=== PATIENT | female | born 1995 ===

== ENCOUNTER 2025-06-18 10:05 | Outpatient (AMB) | payer BC, MEDICAID, SELFPAY ==
[2025-06-18 10:20] VITALS: BP 123/82; PULSE 89; RESP 16; TEMP 36.6; O2SAT 96; BMI 44.6
--- NOTE | 2025-06-18 10:20 | GYNCLNT_ITS ---
Vital Signs 06/18/25 10:20 Height 1.57 m Height Method Stated Weight 110.79 kg Weight Measurement Method Standing Scale BMI 44.6 BP 123/82 Blood Pressure Source Automatic Cuff Blood Pressure Location Left Upper Arm Position Sitting Respiration 16 Pulse 89 Pulse Source Monitor Temp 97.9 F Temp Source Oral Pulse Oximetry (%) 96 Oxygen Delivery Method Room Air Allergies/Home Meds Allergies & Medications Allergies Penicillins Allergy (Severe, Verified 06/18/25 10:23) HIVES Medication Reconciliation medroxyprogesterone 10 mg tablet 10 mg PO QDAY 10 days #10 tabs 06/18/25 [Rx] Intake Visit Data Collection New Patient or Established: Established Patient (seen at [facility] within 3 years) Reason for Visit:: REFERRAL IRREGULAR MENSES Seen by Clinical Staff ONLY (RN/MA): No 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: No Do You Feel Safe at Home: Yes Authorities Contacted: N/A PCP or OBGYN visit in last 3 months: Yes Hx Now: No Are you currently on any form of Control: Yes Last menstrual period: 06/15/25 Pain Present Currently: Yes Pain Location: Abdomen Pain Scale Used: Mcpherson-Melgoza/Numerical Pain scale:: 4 Smoking Status Smoking Status: Never smoker Immunizations Flu Vaccine in the Last 12 Months: No Flu Vaccine Exclusion Criteria: 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 by Patient 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 Menstrual regularity: irregular Flow: heavy Monthly: No How many days does period last: 16 Age at menarche: 10 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 Past Medical History: No Hx Neurological Disorders, No Hx Hypothyroidism, No Hx Hyperthyroidism, No Hx Breast Cancer, No Hx Cardiac Disorders, No Hx Hypertension, No Hx Cancer, No Hx Blood Disorders, No Hx Anemia, No Hx Gastrointestinal Disorders, No Hx Renal Disease, No Hx Deep Vein Thrombosis, No Hx Diabetes Mellitus Type 1, No Hx Diabetes Mellitus Type 2, No Hx Tubal Ligation, No Hx Hysterectomy and No Psychiatric Problems Questionnaires Covid-19 Vaccine Questionnaire Has patient been vacinated for Covid-19 Have you been vacinated for Covid-19: Yes PHQ-9 PHQ-2 Over the last 2 weeks, how often have you been bothered by any of the following problems? 1. Little interest or pleasure in doing things: not at all 2. Feeling down, depressed, or hopeless: not at all Total score: 0 PHQ-9 3. Trouble falling or staying asleep, or sleeping too much: Not at all 4. Feeling tired or having little energy: Not at all 5. Poor appetite or overeating: Not at all 6. Feeling bad about yourself - or that you are a failure or have let yourself or your family down: Not at all 7. Trouble concentrating on things, such as reading the newspaper or watching television: Not at all 8. Moving or speaking so slowly that other people could have noticed? - Or the opposite - being so fidgety or restless that you have been moving around a lot more than usual: not at all 9. Thoughts that you would be better off or of hurting yourself in some way: Not at all Total score: 0 Source: Developed by Drs. Aaron Worthy, Maru Cruz, Manny Adair and colleagues, with an educational dixie from [employer]. Depression screen completed yes Social History Living Situation History Lives With: Family Housing: House Tobacco History Smoking Status: Never smoker Second Hand Smoke Exposure: No Alcohol History Alcohol Intake: Never Domestic Abuse History Do You Feel Safe at Home: Yes History of Present Illness HPI Narrative 29 years old with Prior 4 c sections referred from [facility] / patient had a Pap recently and she states was normal / she had a gastric sleeve, hiatal hernia repair/ liver biopsy and gall Bladder removal done by Dr Azevedo on 06/14/2025 . She was on Microgestin .12/07 for 2 months and it was stopped per patient for prophylaxis for preventing VT/VTE ? Patient has been having withdrawal bleed and soaks about 2 pads/ will call in Provera 10 mgm po q day x 10 days Will check with Dr Azevedo at [phone] to see if she can resume bCPills now . LMP 06/15/2025 / called Dr Azevedo's office and left message to speak to him to see if patient can resume BCPills now Review of Systems Review of Systems Systems Reviewed: All systems reviewed, normal except as documented Exam General General Appearance: alert, cooperative and well groomed Head Head exam: normal inspection Office Procedures [facility] LOC & Office Proc's Nursing/Assessment Patient Status: Established Patient OB Clinic Nursing Assessment: Medication Reconciliation, Update PMH in EMR and Vital Signs OB Clinic Coordination of Care: Complex Care and Chronic Disease 1-5, Consent,records obtained, informed consent, Education Simp Pt/Fam, 1 Ins Authorization, Lab and Imaging orders, Results/Orders obtained and Staff clarify orders Established Patient Charge Established Patient Point Assignment: 120 Established Patient Point Charge: EP Level 4 (120-155) Assessment & Plan Diagnosis / Problem List (1) Contraception management: Status: Acute Qualifiers: Contraceptive encounter type: other general counseling and advice Qualified Code(s): Z30.09 - Encounter for other general counseling and advice on contraception (2) Heavy period: Status: Acute Qualifiers: Menorrhagia type: with irregular cycle Qualified Code(s): N92.1 - Excessive and frequent menstruation with irregular cycle Plan Plan provera 10 mgm po q day x 10 days Additional Assessment 29 years old with Prior 4 c sections referred from [facility] / patient had a Pap recently and she states was normal / she had a gastric sleeve, hiatal hernia repair/ liver biopsy and gall Bladder removal done by Dr Azevedo on 06/14/2025 . She was on Microgestin 1.5/30 for 2 months and it was stopped per patient for prophylaxis for preventing VT/VTE ? Patient has been having withdrawal bleed and soaks about 2 pads/ will call in Provera 10 mgm po q day x 10 days Will check with Dr Azevedo at [phone] to see if she can resume bCPills now . LMP 06/15/2025 / called Dr Azevedo's office and left message to speak to him to see if patient can resume BCPills now
== END 2025-06-18 11:28 | disposition home or self-care (01) ==
PROVIDERS: Supervising Provider Obstetrics & Gynecology; Visit Provider Obstetrics & Gynecology
DX: N92.0 Excessive and frequent menstruation with regular cycle (principal); Z88.0 Allergy status to penicillin; Z98.84 Bariatric surgery status
CPT/HCPCS: 99214; G0463